=== PATIENT | male | born 1945 | race American Indian/Alaskan Native ===

== ENCOUNTER 2022-04-22 20:36 | Inpatient (IN) | payer MEDICARE ==
[2022-04-22] MEDS ORDERED: SODIUM CHLORIDE 0.9% 1000 ML 1,000 ML IV ONE ×2 (21:28→21:40)
--- NOTE | 2022-04-22 21:34 | Emergency Department Report ---
ED General Adult HPI - General Stated complaint: SOB, HYPERGLYCEMIA PUI?: Yes Time Seen by Provider: 04/22/22 21:27 Source: patient, family, RN/MD, EMS Mode of arrival: Ambulatory Limitations: No Limitations - History of Present Illness Initial comments: 76yo M w/hx of DMII, presents for evaluation of cough shortness of breath and high glucose x 4-5 days. Patient states he is vaccinated against COVID and has received 1 vaccine. He denies any known sick contacts or travel history. He cannot describe his chest pain but states "it just hurts." No nausea vomiting fevers or chills. No abdominal pain. Pain currently 6 out of 10 but per patient's report "I do want any pain medicine." -: Gradual, days(s) Location: chest Radiation: non-radiation Severity scale (0 -10): 5 Quality: aching, sharp, dull Consistency: intermittent Improves with: none Worsens with: none Associated Symptoms: cough, shortness of breath Treatments Prior to Arrival: none - Related Data Allergies Allergy/AdvReac Type Severity Reaction Status Date / Time No Known Allergies Allergy Verified 04/22/22 21:56 ED Review of Systems ROS: Stated complaint: SOB, HYPERGLYCEMIA Other details as noted in HPI Comment: All other systems reviewed and negative Respiratory: see HPI, cough, shortness of breath, SOB with exertion Cardiovascular: chest pain, dyspnea on exertion. denies: palpitations, orthopnea, edema, syncope, paroxysmal nocturnal dyspnea, other Endocrine: no symptoms reported Gastrointestinal: as per HPI Genitourinary: denies: urgency, dysuria, frequency, hematuria, discharge, testicular pain, testicular mass, other Musculoskeletal: denies: back pain Skin: denies: as per HPI, rash, lesions, change in color, change in hair/nails, pruritus Neurological: denies: as per HPI, headache, weakness, numbness, paresthesias, confusion, abnormal gait, vertigo, other Psychiatric: denies: anxiety, depression, auditory hallucinations, visual hallucinations, homicidal thoughts, suicidal thoughts ED Past Medical Hx - Past Medical History Previous Medical History?: Yes Hx Diabetes: Yes ED Physical Exam - General Limitations: No Limitations General appearance: alert, in no apparent distress - Head Head exam: Present: atraumatic, normocephalic, normal inspection - Eye Eye exam: Present: normal appearance, PERRL, EOMI Pupils: Present: normal accommodation - ENT ENT exam: Present: normal exam, mucous membranes moist, normal external ear exam - Neck Neck exam: Present: normal inspection, other (no jvd, no carotid bruits ) - Respiratory Respiratory exam: Present: normal lung sounds bilaterally, other (Decreased breath sounds in right lung bases) - Cardiovascular Cardiovascular Exam: Present: regular rate, normal rhythm - GI/Abdominal GI/Abdominal exam: Present: soft - Extremities Exam Extremities exam: Present: normal inspection, full ROM - Back Exam Back exam: Present: normal inspection, full ROM. Absent: tenderness, CVA tenderness (R), CVA tenderness (L), muscle spasm, paraspinal tenderness, vertebral tenderness, rash noted - Neurological Exam Neurological exam: Present: alert, oriented X3, CN II-XII intact, normal gait, motor sensory deficit, reflexes normal - Psychiatric Psychiatric exam: Present: normal affect - Skin Skin exam: Present: warm, intact, normal color ED Course Vital Signs 04/22/22 04/22/22 21:47 22:08 Temperature 101.7 F H Pulse Rate 109 H Respiratory 18 18 Rate Blood Pressure 102/63 Blood Pressure 102/63 [Left] O2 Sat by Pulse 100 Oximetry - Reevaluation(s) Reevaluation #1: 04/22/22 22:54 pt and family updated concerning the labs and diagnostic imaging findings. I advised the patient to be admitted to the hospital. ED Medical Decision Making - Lab Data Result diagrams: 04/22/22 21:37 04/22/22 21:37 - EKG Data EKG shows normal: sinus rhythm Rate: tachycardia - EKG Data When compared to previous EKG there are: no significant change, previous EKG unavailable - Medical Decision Making 76-year-old male with type 2 diabetes presents for evaluation of sepsis secondary to community-acquired pneumonia. Patient given normal saline, acetaminophen, Rocephin and azithromycin. Labs reviewed. Case discussed with , admitting hospitalist. He has excepted the patient for admission to the hospitalist service for further management Critical care attestation.: If time is entered above; I have spent that time in minutes in the direct care of this critically ill patient, excluding procedure time. ED Disposition Clinical Impression: Community acquired pneumonia, Metabolic acidosis, Sepsis Disposition: ADMITTED INPATIENT Is pt being admited?: Yes Does the pt Need Aspirin: No Condition: Stable Instructions: Bacterial Pneumonia (ED)
[2022-04-22] MEDS ORDERED: ACETAMINOPHEN 325 MG TAB PO ONE (21:38)
[2022-04-22 22:06] LABS: Hematocrit 37.1 % (35.5-45.6); Hemoglobin 12.1 gm/dl (11.8-15.2); Mean Corpuscular HGB Conc 33 % (32-34); Mean Corpuscular Volume 97 fl (84-94); Platelet Count 223 K/mm3 (140-440); Red Blood Count 3.82 M/mm3 (3.65-5.03); Red Cell Distribution Width 15.5 % (13.2-15.2)
--- NOTE | 2022-04-22 22:30 | XRay Report ---
CHEST 1 VIEW 04/22/2022 9:23 PM INDICATION / CLINICAL INFORMATION: chest pain, sob. COMPARISON: None available. FINDINGS: SUPPORT DEVICES: None. HEART / MEDIASTINUM: No significant abnormality. LUNGS / PLEURA: There is dense airspace opacity in the right lung base. There are mild patchy opaciti es within the right midlung and in the left mid to lower lung. No pneumothorax. ADDITIONAL FINDINGS: No significant additional findings. IMPRESSION: 1. Dense consolidation in the right lung base concerning for pneumonia. There may be mild pneumonia s cattered within the remainder of both lungs as well. Signer Name: Dieter Amezcua MD Signed: 04/22/2022 10:26 PM Workstation Name: [id number]
[2022-04-22] MEDS ORDERED: CEFEPIME/NS 1 GM/100 ML 1 GM/100 ML BAG IV ONE (22:31)
[2022-04-22] MEDS ORDERED: AZITHROMYCIN/NS 500 MG/250 ML 500 MG/250 ML BAG IV ONE (22:37)
[2022-04-22] MEDS ORDERED: cefTRIAXone/NS 1 GM/50 ML 1 GM/50 ML BAG IV ONE (22:37)
[2022-04-22 22:39] LABS: Alanine Aminotransferase 11 units/L (7-56); Albumin 4.3 g/dL (3.9-5); BUN/Creatinine Ratio 22; Blood Urea Nitrogen 22 mg/dL (9-20); Calcium 9.8 mg/dL (8.4-10.2); Hemolysis Index 17
[2022-04-22 22:40] LABS: Bilirubin,Direct < 0.2 mg/dL (0-0.2)
[2022-04-22 22:47] LABS: Basophils % (Manual) 0 % (0.0-1.8); Eosinophils % (Manual) 0 % (0.0-4.3); Total Cells Counted 100
[2022-04-22 22:49] LABS: Platelet Estimate Consistent w Auto
[2022-04-22 23:04] LABS: Color,Urine Colorless (Yellow)
[2022-04-22 23:05] LABS: Bilirubin,Urine Moderate (Negative); Blood,Urine Trace (Negative)
[2022-04-22 23:06] LABS: Urobilinogen,Urine 0.2 mg/dL (<2.0)
[2022-04-22 23:07] LABS: WBC,Urine < 1.0 /HPF (0.0-6.0)
[2022-04-22 23:09] LABS: Ictotest,Urine Negative (Negative)
[2022-04-22] MEDS ORDERED: MAGNESIUM HYDROXIDE (MOM) ORAL LIQD UDC PO PRN (23:27)
[2022-04-22] MEDS ORDERED: DEXTROSE 50% IN WATER (25GM) 50 ML SYRINGE IV PRN (23:27)
[2022-04-22] MEDS ORDERED: MORPHINE 2 MG/1 ML INJ IV PRN (23:27)
[2022-04-22] MEDS ORDERED: ACETAMINOPHEN 325 MG TAB PO PRN (23:27)
[2022-04-22] MEDS ORDERED: MORPHINE 4 MG/1 ML INJ IV PRN (23:27)
[2022-04-22] MEDS ORDERED: ONDANSETRON 4 MG/2 ML INJ IV PRN (23:27)
[2022-04-22] MEDS ORDERED: SODIUM CHLORIDE 0.9% 1000 ML 1,000 ML IV SCH (23:30)
--- NOTE | 2022-04-22 23:56 | History and Physical Report ---
History of Present Illness Date of examination: 04/22/22 Date of admission: 04/22/22 23:27 Chief complaint: Shortness of Breath History of present illness: 76-year-old male with known history of diabetes mellitus presenting to the emergency room today complaining of elevated blood glucose and shortness of breath. Patient states that his symptoms has been ongoing for the past 4 to 5 days. He denies any fever or chills, denies any sick contacts and no recent tra trisha. He however has had some chest discomfort. He denies any nausea or vomiting and no abdominal pain. Patient was vaccinated against COVID-19. Work-up in the emergency room today, lab reveals leukocytosis of 23: Lactic acid of 2.3, hyperglycemia of 365. Urinalysis was unremarkable. Chest x-ray reveals dense consolidation in the right lung base concerning for pneumonia. Franci revealed mild pneumonia scattered within the remainder of both lungs as well. Past History Past Medical History: diabetes, hypertension Past Surgical History: No surgical history Social history: no significant social history Family history: no significant family history Medications and Allergies Allergies Allergy/AdvReac Type Severity Reaction Status Date / Time No Known Allergies Allergy Verified 04/22/22 21:56 Active Meds: Active Medications Acetaminophen (Acetaminophen 325 Mg Tab) 650 mg PO Q4H PRN PRN Reason: Pain MILD(1-3)/Fever >100.5/HALL Azithromycin (Azithromycin 250 Mg Tab) 500 mg PO QDAY RUPALI; Protocol Dextrose (Dextrose 50% In Water (25gm) 50 Ml Syringe) 50 ml IV Q30MIN PRN; Protocol PRN Reason: Hypoglycemia Heparin Sodium (Porcine) (Heparin 5,000 Unit/1 Ml Vial) 5,000 unit SUB-Q Q8HR RUPALI Sodium Chloride (Nacl 0.9% 1000 Ml) 1,000 mls @ 125 mls/hr IV DIRECT RUPALI Ceftriaxone Sodium (Rocephin/Ns 2 Gm/100 Ml) 2 gm in 100 mls @ 200 mls/hr IV Q24H RUPALI; Protocol Insulin Human Lispro (Insulin Lispro 100 Unit/Ml) 0 unit SUB-Q ACHS RUPALI; Protocol Magnesium Hydroxide (Magnesium Hydroxide (Mom) Oral Liqd Udc) 30 ml PO Q4H PRN PRN Reason: Constipation Morphine Sulfate (Morphine 2 Mg/1 Ml Inj) 2 mg IV Q4H PRN PRN Reason: Pain, Moderate (4-6) Morphine Sulfate (Morphine 4 Mg/1 Ml Inj) 4 mg IV Q4H PRN PRN Reason: Pain , Severe (7-10) Ondansetron HCl (Ondansetron 4 Mg/2 Ml Inj) 4 mg IV Q8H PRN PRN Reason: Nausea And Vomiting Sodium Chloride (Sodium Chloride 0.9% 10 Ml Flush Syringe) 10 ml IV BID RUPALI Sodium Chloride (Sodium Chloride 0.9% 10 Ml Flush Syringe) 10 ml IV PRN PRN PRN Reason: LINE FLUSH Review of Systems Constitutional: no fever, no chills Ears, nose, mouth and throat: no nasal congestion, no sore throat Cardiovascular: no chest pain, no palpitations Respiratory: cough, shortness of breath Genitourinary Male: no dysuria, no hematuria, no flank pain, no nocturia Musculoskeletal: no neck pain, no low back pain Integumentary: no rash, no pruritis Neurological: no headaches, no confusion Psychiatric: no anxiety, no depression Endocrine: no polyphagia, no polydipsia, no polyuria, no nocturia Exam - Constitutional Vitals: Temp Pulse Resp BP Pulse Ox 101.7 F H 109 H 18 102/63 100 04/22/22 21:47 04/22/22 21:47 04/22/22 22:08 04/22/22 21:47 04/22/22 21:47 General appearance: Present: no acute distress, well-nourished - EENT Eyes: Present: PERRL, EOM intact. Absent: scleral icterus ENT: hearing intact, clear oral mucosa, dentition normal - Neck Neck: Present: supple, normal ROM - Respiratory Respiratory effort: normal Respiratory: right: diminished - Cardiovascular Rhythm: regular Heart Sounds: Present: S1 & S2. Absent: gallop, systolic murmur, diastolic murmur, rub, click - Extremities Extremities: no ischemia, pulses intact, pulses symmetrical, No edema, normal temperature, normal color, Full ROM Peripheral Pulses: within normal limits - Abdominal General gastrointestinal: Present: soft, non-tender, non-distended, normal bowel sounds. Absent: mass - Integumentary Integumentary: Present: clear, warm, dry, normal turgor. Absent: rash - Musculoskeletal Musculoskeletal: strength equal bilaterally - Psychiatric Psychiatric: appropriate mood/affect, intact judgment & insight, memory intact, cooperative - Neurologic Neurologic: CNII-XII intact, no focal deficits, moves all extremities HEART Score - HEART Score Troponin: Troponin T < 0.010 ng/mL (0.00-0.029) 04/22/22 21:37 Results - Labs CBC & Chem 7: 04/22/22 21:37 04/22/22 21:37 Labs: Abnormal lab results 04/22/22 04/22/22 04/22/22 Range/Units 21:36 21:37 21:37 WBC 23.9 H (4.5-11.0) K/mm3 MCV 97 H (84-94) fl RDW 15.5 H (13.2-15.2) % Seg Neuts % (Manual) 37.0 L (40.0-70.0) % Lymphocytes % (Manual) 62.0 H (13.4-35.0) % Seg Neutrophils # Man 8.8 H (1.8-7.7) K/mm3 Lymphocytes # (Manual) 14.8 H (1.2-5.4) K/mm3 Chloride 95.5 L (98-107) mmol/L BUN 22 H (9-20) mg/dL Glucose 365 H (75-100) mg/dL POC Glucose 318 H (70-105) mg/dL Lactic Acid (0.7-2.0) mmol/L 04/22/22 Range/Units 21:51 WBC (4.5-11.0) K/mm3 MCV (84-94) fl RDW (13.2-15.2) % Seg Neuts % (Manual) (40.0-70.0) % Lymphocytes % (Manual) (13.4-35.0) % Seg Neutrophils # Man (1.8-7.7) K/mm3 Lymphocytes # (Manual) (1.2-5.4) K/mm3 Chloride (98-107) mmol/L BUN (9-20) mg/dL Glucose (75-100) mg/dL POC Glucose (70-105) mg/dL Lactic Acid 2.30 H* (0.7-2.0) mmol/L Assessment and Plan Assessment: 1. Pneumonia 2. Hyperglycemia 3. Leukocytosis-possibly secondary to underlying pneumonia 4. Lactic acidosis 5. Sepsis Plan: 1. Patient admitted and placed on empiric IV antibiotics. Will await culture results. 2. Patient placed on sliding scale insulin. We will monitor Accu-Cheks. 3. We will resume routine home medications and monitor vital signs closely. DVT prophylaxis: SQ Heparin Code Status: Full code.
[2022-04-23] MEDS: HEPARIN 5,000 UNIT/1 ML VIAL SUB-Q SCH ×2 (07:29→13:39)
[2022-04-23] MEDS: INSULIN LISPRO 100 UNIT/ML SUB-Q SCH ×3 (08:48→19:22)
[2022-04-23 08:56] LABS: BUN/Creatinine Ratio 24; Blood Urea Nitrogen 22 mg/dL (9-20); Calcium 9.6 mg/dL (8.4-10.2); Hemolysis Index 3
[2022-04-23] MEDS ORDERED: cefTRIAXone/NS 2 GM/100 ML 2 GM/100 ML BAG IV SCH (10:00)
[2022-04-23] MEDS ORDERED: AZITHROMYCIN 250 MG TAB PO SCH (10:00)
[2022-04-23] MEDS ORDERED: NON-FORMULARY EACH (Sitagliptin Phos/Metformin Hcl [Janumet Xr 50-1,000 Mg] 1 EACH Tbmp.24 PO SCH (14:15)
[2022-04-23] MEDS ORDERED: glipiZIDE 10 MG TAB PO SCH (15:00)
[2022-04-23] MEDS ORDERED: INSULIN REGULAR, HUMAN 100 UNITS/1 ML SUB-Q ONE (15:00)
--- NOTE | 2022-04-23 16:18 | Progress Note ---
Subjective Date of service: 04/23/22 Objective - Constitutional Vitals: Vital Signs - 12hr 04/23/22 04/23/22 04/23/22 06:00 08:35 13:18 Temperature 98.4 F Pulse Rate 100 H Respiratory 16 20 Rate Blood Pressure 138/79 O2 Sat by Pulse 98 96 98 Oximetry - Labs CBC & Chem 7: 04/22/22 21:37 04/23/22 08:00 Labs: Abnormal lab results 04/22/22 04/22/22 04/22/22 Range/Units 21:36 21:37 21:37 WBC 23.9 H (4.5-11.0) K/mm3 MCV 97 H (84-94) fl RDW 15.5 H (13.2-15.2) % Seg Neuts % (Manual) 37.0 L (40.0-70.0) % Lymphocytes % (Manual) 62.0 H (13.4-35.0) % Seg Neutrophils # Man 8.8 H (1.8-7.7) K/mm3 Lymphocytes # (Manual) 14.8 H (1.2-5.4) K/mm3 Chloride 95.5 L (98-107) mmol/L BUN 22 H (9-20) mg/dL Glucose 365 H (75-100) mg/dL POC Glucose 318 H (70-105) mg/dL Lactic Acid (0.7-2.0) mmol/L 04/22/22 04/23/22 04/23/22 Range/Units 21:51 08:00 08:33 WBC (4.5-11.0) K/mm3 MCV (84-94) fl RDW (13.2-15.2) % Seg Neuts % (Manual) (40.0-70.0) % Lymphocytes % (Manual) (13.4-35.0) % Seg Neutrophils # Man (1.8-7.7) K/mm3 Lymphocytes # (Manual) (1.2-5.4) K/mm3 Chloride (98-107) mmol/L BUN 22 H (9-20) mg/dL Glucose 298 H (75-100) mg/dL POC Glucose 403 H (70-105) mg/dL Lactic Acid 2.30 H* (0.7-2.0) mmol/L 04/23/22 Range/Units 12:40 WBC (4.5-11.0) K/mm3 MCV (84-94) fl RDW (13.2-15.2) % Seg Neuts % (Manual) (40.0-70.0) % Lymphocytes % (Manual) (13.4-35.0) % Seg Neutrophils # Man (1.8-7.7) K/mm3 Lymphocytes # (Manual) (1.2-5.4) K/mm3 Chloride (98-107) mmol/L BUN (9-20) mg/dL Glucose (75-100) mg/dL POC Glucose 438 H (70-105) mg/dL Lactic Acid (0.7-2.0) mmol/L HEART Score - HEART Score Troponin: Troponin T < 0.010 ng/mL (0.00-0.029) 04/22/22 21:37
--- NOTE | 2022-04-23 16:41 | Discharge Summary ---
Providers - Providers Date of Admission: 04/22/22 23:27 Date of discharge: 04/23/22 Attending physician: INGRID RAMSEY 04/22/22 23:27 Consult to Dietitian/Nutrition [CONS] Routine Physician Instructions: Reason For Exam: Reason for Consult: Diet education Primary care physician: RN TRAVELING Hospitalization Condition: Stable Disposition: 01 HOME / SELF CARE / HOMELESS Final Discharge Diagnosis (Prints w/discharge instructions): -- RUL PNA. -- Uncontrolled DM Time spent for discharge: 34 minutes Core Measure Documentation - Palliative Care Palliative Care/ Comfort Measures: Not Applicable - Core Measures Any of the following diagnoses?: none Exam - Constitutional Vitals: Temp Pulse Resp BP Pulse Ox 98.4 F 100 H 20 138/79 98 04/23/22 13:18 04/23/22 13:18 04/23/22 13:18 04/23/22 13:18 04/23/22 13:18 Plan Activity: advance as tolerated Weight Bearing Status: Weight Bear as Tolerated Diet: diabetic Special Instructions: record blood sugar diary (qachs) Follow up with: ELIAS LOO MD [Primary Care Provider] - 7 Days DIANA VELÁZQUEZ MD [Staff Physician] - 7 Days Prescriptions: levoFLOXacin [Levaquin] 750 mg PO QDAY #6 tablet
[2022-04-23 16:57] LABS: Hematocrit 36.1 % (35.5-45.6); Hemoglobin 11.7 gm/dl (11.8-15.2); Mean Corpuscular HGB Conc 32 % (32-34); Mean Corpuscular Volume 97 fl (84-94); Platelet Count 234 K/mm3 (140-440); Red Blood Count 3.74 M/mm3 (3.65-5.03); Red Cell Distribution Width 15.7 % (13.2-15.2)
--- NOTE | 2022-04-23 18:41 | Electrocardiograph Report ---
[facility] Test Date: 2022-04-22 Test Time: 21:29:14 Pat Name: GRANT GAMEZ Department: Room: A361 1 Gender: M Vb Developer: JOSH : 1945 Requested By: АНДРЕЙ MORALES Order Number: [id number] Reading MD: Ren Overton Measurements Intervals [place] Rate: 100 P: -62 UT: 165 QRS: 39 QRSD: 81 T: 85 QT: 333 QTc: 430 Interpretive Statements Ectopic atrial tachycardia Left ventricular hypertrophy No previous ECG available for comparison Electronically Signed On 04-23-2022 18:40:56 EDT by Ren Overton
[2022-04-23 19:09] VITALS: BP 116/60
[2022-04-23] MEDS ORDERED: NON-FORMULARY EACH (Lisinopril 20 MG) PO SCH (22:00)
[2022-04-23] MEDS ORDERED: PRAVASTATIN 20 MG TAB PO SCH (22:00)
[2022-04-23] MEDS ORDERED: LISINOPRIL 20 MG TAB PO SCH (22:00)
[2022-04-23] MEDS ORDERED: GABAPENTIN 400 MG CAP PO SCH (22:00)
[2022-04-24] MEDS ORDERED: metFORMIN XR 500MG TAB PO SCH (08:00)
[2022-04-24] MEDS ORDERED: LINAGLIPTIN 5 MG TAB PO SCH (10:00)
== END 2022-04-23 20:55 | disposition home or self-care (01) | DRG 871 ==
LOC: ED 20:36 → 3A 23:27
PROVIDERS: ADMIT Internal Medicine Geriatric Medicine; ATTEND Internal Medicine
DX: A41.9 Sepsis, unspecified organism (principal); J18.9 Pneumonia, unspecified organism; I10 Essential (primary) hypertension; E11.65 Type 2 diabetes mellitus with hyperglycemia
CPT/HCPCS: 36415; 71045; 80048; 80076; 81001; 82140; 82962; 83880; 84484; 85007; 85025; 85027; 87040; 93005; G0378; Q9967; J0456; J0696; J1644; J1815; J7030